=== PATIENT | male | born 1960 | race Caucasian/White ===

== ENCOUNTER 2021-11-25 05:26 | Emergency (ER) | payer BC ==
[~2021-11-25] VITALS: Ht 180.3 cm; Wt 92.8 kg
--- NOTE | 2021-11-25 05:30 | PHYS DOC ---
General Adult HPI: HPI: ". I have ear ache.. I went to doctor .. and they put me on the antibiotic.. I ve taken it since friday.. but I am no better... the Lt ear still hurts.. I put some [place] balm on it...." Patient is a 61 year old male who presents with ear pain since Friday of this past week. Patient has somewhat retracted TM and mildly injected canal. On the left. . No history of immunosuppression. No history of chickenpox as a child. No findings of zoster appreciated. No temporal tenderness. No history of trauma. Has been taking Augmentin 875 twice a day. Did take some ibuprofen earlier if no relief. No history immunosuppression. No adenopathy appreciated Review of Systems: Review of Systems: Constitutional: Denies fever or chills Eyes: Denies change in visual acuity HENT: Complains of left ear pain Respiratory: Denies cough or shortness of breath Cardiovascular: Denies chest pain or edema GI: Denies abdominal pain, nausea, vomiting, bloody stools or diarrhea : Denies dysuria Musculoskeletal: Denies back pain or joint pain Integument: Denies rash Neurologic: Denies headache, focal weakness or sensory changes Endocrine: Denies polyuria or polydipsia Lymphatic: Denies swollen glands Psychiatric: Denies depression or anxiety Family History: Family History: Noncontributory to presentation Current Medications: Current Meds: See nursing for home meds Allergies: Allergies: No known drug allergies Physical Exam: PE: Constitutional:, well nourished, reports moderate acute distress, non-toxic appearance. [] HENT: Normocephalic, atraumatic, right l external ears normal, oropharynx moist, no oral exudates, nose normal. Complaints of left ear pain. Left canal slightly injected. TM retracted on left. Eyes: PERRLA, EOMI, conjunctiva normal, no discharge. [] Neck: Normal range of motion, no tenderness, supple, no stridor. [] Cardiovascular:Heart rate regular rhythm, no murmur [] Lungs & Thorax: Bilateral breath sounds equal at apex auscultation [] Abdomen: Bowel sounds normal, soft, no tenderness, no masses, no pulsatile masses. [] Skin: Warm, dry, no erythema, no rash. [] Back: No tenderness, no CVA tenderness. [] Extremities: No tenderness, no cyanosis, no clubbing, ROM intact, no edema. [] Neurologic: Alert and oriented X 3, normal motor function, normal sensory function, no focal deficits noted. [] Psychologic: Affect anxious judgement normal, mood normal. [] EKG: EKG: [] Radiology/Procedures: Radiology/Procedures: [] Heart Score: C/O Chest Pain: N/A Risk Factors: Risk Factors: DM, Current or recent (<one month) smoker, HTN, HLP, family history of CAD, obesity. Risk Scores: Score 0 - 3: 2.5% MACE over next 6 weeks - Discharge Home Score 4 - 6: 20.3% MACE over next 6 weeks - Admit for Clinical Observation Score 7 - 10: 72.7% MACE over next 6 weeks - Early Invasive Strategies Course & Med Decision Making: Course & Med Decision Making Pertinent Labs and Imaging studies reviewed. (See chart for details) Patient continue the Augmentin until completed. Patient use Cortisporin eardrops 2 drops 4 times a day to left canal. Take Tylenol and ibuprofen for pain. Follow-up with primary care. If he develops a rash in the area of the ear pain consider zoster infection. Impression: 1. Lt ear pain- [] Dragon Disclaimer: Dragon Disclaimer: This electronic medical record was generated, in whole or in part, using a voice recognition dictation system. Dragon Disclaimer This chart was dictated in whole or in part using Voice Recognition software in a busy, high-work load, and often noisy Emergency Department environment. It may contain unintended and wholly unrecognized errors or omissions. HARIKA ALFARO MD Nov 25, 2021 05:30
[2021-11-25 05:43] VITALS: BP 140/87
[2021-11-25] MEDS ORDERED: NEOMYCIN/POLYMYXIN/HC OTIC SUSPENSION 10ML BOTTLE. AS ONE (06:30)
[2021-11-25] MEDS ORDERED: KETOROLAC 60 MG/2 ML VIAL. IM ONE (06:30)
== END 2021-11-25 06:08 | disposition home or self-care (01) ==
LOC: ER 05:26
DX: H92.02 Otalgia, left ear (principal)
CPT/HCPCS: 96372; 99283; J1885